=== PATIENT | male | born 1960 | race Caucasian/White ===

== ENCOUNTER 2018-04-21 23:00 | Emergency (ER) | payer OTHER ==
[~2018-04-21] VITALS: Ht 185.4 cm; Wt 75.2 kg
[2018-04-21 23:05] VITALS: TEMP 36.9; Ht 185.4 cm; Wt 75.2 kg
[2018-04-21] MEDS ORDERED: SODIUM CHLORIDE 0.9% 1000ML 2,000 ML IV STA (23:22)
[2018-04-21] MEDS ORDERED: ATEN50TA8 PO (23:33)
[2018-04-21 23:46] LABS: BASO % 0.7 %; BASO ABS # 0.04 K/uL (0-0.2); EOS % 1.7 %; HEMATOCRIT 42.4 % (42-52); HEMOGLOBIN 14.6 g/dL (14.0-18.0); IG# 0.01 K/uL (0.00-0.02); LYMPH % 22.9 %; LYMPH ABS # 1.38 K/uL (1.2-3.4); MEAN CELL VOLUME 89.6 fL (80-100); MEAN CORPUSCULAR HEMOGLOBIN 30.9 pg (25-34); MEAN CORPUSCULAR HGB CONC 34.4 g/dl (32-36); MEAN PLATELET VOLUME 9.5 fL (7.4-10.4); MONO % 6.3 %; MONO ABS # 0.38 K/uL (0.11-0.59); NEUT % 68.2 %; NEUT ABS # 4.12 K/uL (1.4-6.5); PLATELET COUNT 299 K/uL (130-400); RED CELL DISTRIBUTION WIDTH CV 13.2 % (11.5-14.5); RED CELL DISTRIBUTION WIDTH SD 43.5 fL (36.4-46.3); WHITE BLOOD COUNT 6.03 K/uL (4.8-10.8)
--- NOTE | 2018-04-22 00:05 | EMERGENCY ROOM VISIT NOTE ---
History Report prepared by Jeanie: Oscar Casanova Under the Supervision of: Dr. Vahe Christianson M.D. First contact with patient: 23:09 Chief Complaint: SYNCOPE Stated Complaint: SYNCOPE History of Present Illness The patient is a 58 year old male who presents to the Emergency Room due to a recent syncope episode. Patient states he flew from [place], [place] to [place] a few days ago. He states he stayed in [place] for a couple of nights prior to driving to [place] 10 hours ago. He states when he got to [place] he then went to dinner where he had two beers over a three hour period. He states he was then was standing up and began feeling lightheaded. Patient states he then loss consciousness and just remembers "people standing over looking at him". Patient's sister states she witnessed the syncope episode. She denies the patient having a seizure but adds he did appear pale. Patient states EMS told him he was "very dehydrated". He admits to not drinking much water today and states he urinated prior to dinner. Past medical history includes hypertension which he takes atenolol for, GERD, and a tonsillectomy. Family history includes stroke, cancer, blood clots, and thyroid problems. Patient denies any recent bumps/bruises, ear pain, sore throat, chest pain, SOB, abdominal pain, headaches, leg swelling/cramping, neck pain, melena, hematochezia, diarrhea, and stomach issues. 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 He denies taking any medications prior to the syncope episode. Source of History: patient, family (Sister) Onset: Recent Position: head Quality: other (Syncope) Modifying Factors (Relieving): other (None) Associated Symptoms: + LOC, No headache, No sorethroat, No neck pain, No chest pain, No SOB, No abdominal pain, No melena, No hematochezia, No diarrhea Note: Negative bumps/bruises, ear pain, and leg swelling/cramping. Review of Systems See HPI for pertinent positives & negatives. A total of 10 systems reviewed and were otherwise negative. Past Medical & Surgical Medical Problems: (1) GERD (gastroesophageal reflux disease) (2) Hypertension Surgical Problems: (1) Hx of tonsillectomy Family History Blood clots FH: thyroid disease FHx: cancer Stroke Social History Smoking Status: Never Smoker Current/Historical Medications Scheduled Atenolol (Tenormin), 50 MG PO DAILY Allergies Coded Allergies: No Known Allergies (Unverified , 04/21/18) Physical Exam Vital Signs Date Time Temp Pulse Resp B/P (MAP) Pulse Ox O2 Delivery O2 Flow Rate FiO2 04/22/18 00:51 80 18 128/73 98 Room Air 04/21/18 23:05 36.9 81 18 140/90 100 Room Air Physical Exam GENERAL: Patient is tired/dehydrated appearing and in no acute distress. EYES: No scleral icterus, unremarkable pupils. ENT: Mucous membranes dry, no nasal congestion. NECK: No masses appreciated, no meningismus, trachea is midline. RESPIRATORY: No dyspnea. Clear to auscultation and equal bilaterally. No wheeze , no rhonchi. CARDIOVASCULAR: Regular rate and rhythm. No murmurs, rubs, gallops appreciated. GASTROINTESTINAL: Abdomen soft, nontender, no peritonitis. Bowel sounds positive. No masses appreciated. BACK: No midline tenderness, no CVA tenderness EXTREMITIES: Normal motion all extremities, no cyanosis, no edema. NEUROLOGIC: Alert and oriented, no acute motor or sensory deficits, no focal weakness, cranial nerves grossly intact. SKIN: No rash, no jaundice, no diaphoresis. Medical Decision & Procedures Laboratory Results 04/21/18 23:33 Red Blood Count 4.73, Mean Corpuscular Volume 89.6, Mean Corpuscular Hemoglobin 30.9, Mean Corpuscular Hemoglobin Concent 34.4, Mean Platelet Volume 9.5, Neutrophils (%) (Auto) 68.2, Lymphocytes (%) (Auto) 22.9, Monocytes (%) (Auto) 6.3, Eosinophils (%) (Auto) 1.7, Basophils (%) (Auto) 0.7, Neutrophils # (Auto) 4.12, Lymphocytes # (Auto) 1.38, Monocytes # (Auto) 0.38, Eosinophils # (Auto) 0.10, Basophils # (Auto) 0.04 04/21/18 23:33 Test 04/21/18 23:33 04/22/18 01:14 White Blood Count 6.03 K/uL (4.8-10.8) Red Blood Count 4.73 M/uL (4.7-6.1) Hemoglobin 14.6 g/dL (14.0-18.0) Hematocrit 42.4 % (42-52) Mean Corpuscular Volume 89.6 fL (80-100) Mean Corpuscular Hemoglobin 30.9 pg (25-34) Mean Corpuscular Hemoglobin Concent 34.4 g/dl (32-36) Platelet Count 299 K/uL (130-400) Mean Platelet Volume 9.5 fL (7.4-10.4) Neutrophils (%) (Auto) 68.2 % Lymphocytes (%) (Auto) 22.9 % Monocytes (%) (Auto) 6.3 % Eosinophils (%) (Auto) 1.7 % Basophils (%) (Auto) 0.7 % Neutrophils # (Auto) 4.12 K/uL (1.4-6.5) Lymphocytes # (Auto) 1.38 K/uL (1.2-3.4) Monocytes # (Auto) 0.38 K/uL (0.11-0.59) Eosinophils # (Auto) 0.10 K/uL (0-0.5) Basophils # (Auto) 0.04 K/uL (0-0.2) RDW Standard Deviation 43.5 fL (36.4-46.3) RDW Coefficient of Variation 13.2 % (11.5-14.5) Immature Granulocyte % (Auto) 0.2 % Immature Granulocyte # (Auto) 0.01 K/uL (0.00-0.02) D-Dimer < 190 ug/L FEU (0-500) Anion Gap 9.0 mmol/L (3-11) Est Creatinine Clear Calc Drug Dose 80.3 ml/min Estimated GFR () 90.0 Estimated GFR (Non- 77.7 BUN/Creatinine Ratio 16.8 (10-20) Calcium Level 8.8 mg/dl (8.5-10.1) Troponin I < 0.015 ng/ml (0-0.045) Thyroid Stimulating Hormone (TSH) 2.480 uIu/ml (0.300-4.500) Bedside Troponin I < 0.030 ng/ml (0-0.045) Laboratory results as reviewed by me. Medications Administered Medications (Trade) Dose Ordered Sig/Aundrea Route Start Time Stop Time Status Last Admin Dose Admin Sodium Chloride 2,000 ml @ 999 mls/hr Q2H1M STAT IV 04/21/18 23:22 8/11/18 01:22 DC 04/21/18 23:40 999 MLS/HR ECG Per My Interpretation Indication: syncope Rate (beats per minute): 79 Rhythm: normal sinus Findings: no acute ischemic change, no ectopy, other (QTc = 419) Comparison ECG Date: no prior available ED Course 2301: The patient was evaluated in room C9. A complete history and physical exam was performed. 0036: I reassessed the patient. He states he is feeling better. I discussed the need for a repeat troponin which he is agreeable to. 0137: Reevaluated the patient. He states he is feeling better and is comfortable going home. He denies any current SOB or headaches. Discussed results and discharge instructions. He verbalized understanding and agreement. The patient is ready for discharge. Medical Decision Differential: Vaso-vagal, Intracerebral Event, Neurologic, Infectious, Volume Deficiency, Hypoglycemia, Electrolyte Abnormality, Cardiac Source, Toxicologic, amongst other pathologies entertained. 58 yr old male who is in town from [facility] for wedding arrives after brief syncopal event. Story sounds very much consistent with vagal/hypovolemic syncope and he currently appears quite well. Dehydrated, minimal sleep, minimal to eat, a bit of etoh, just walked in to a bar all contributing. Stating feeling better after IV fluids. Dimer negative and with normal vitals I feel CT PE is not indicated. Trop negative x 2 and EKG unremarkable. No indication for CT/MRI head as no neuro deficits nor headache and other cause more likely. He has normal electrolytes, normal TSH, normal blood counts. Looks and feels well. Discharged to home with family and reviewed symptoms requiring RTED. Stable at discharge. Head Trauma GCS Score: 15 Medication Reconcilliation Current Medication List: was personally reviewed by me Blood Pressure Screening Patient's blood pressure: Normal blood pressure Blood pressure disposition: Did not require urgent referral Impression Primary Impression: Syncope Additional Impression: Dehydration Scribe Attestation The scribe's documentation has been prepared under my direction and personally reviewed by me in its entirety. I confirm that the note above accurately reflects all work, treatment, procedures, and medical decision making performed by me. Departure Information Dispostion Home / Self-Care Patient Instructions Fainting (Syncope) - [facility], My [facility] Health Problem Qualifiers
[2018-04-22 00:18] LABS: BLOOD UREA NITROGEN 17 mg/dl (7-18); CALCIUM 8.8 mg/dl (8.5-10.1); CARBON DIOXIDE 26 mmol/L (21-32); CREATININE 1.04 mg/dl (0.60-1.40); GLUCOSE 101 mg/dl (70-99); POTASSIUM 3.8 mmol/L (3.5-5.1); SODIUM 139 mmol/L (136-145)
[2018-04-22 00:51] VITALS: BP 128/73; PULSE 80; O2SAT 98
== END 2018-04-22 01:29 | disposition home or self-care (01) ==
LOC: EDBD 23:00 → C.EDC 23:04
DX: R55 Syncope and collapse (principal); E86.0 Dehydration; I10 Essential (primary) hypertension